=== PATIENT | female | born 1965 | race Caucasian/White ===

== ENCOUNTER 2016-05-27 12:47 | Outpatient (CLI) | payer BC | END 2016-05-27 12:48 | disposition home or self-care (01) | DX: Z12.31 Encounter for screening mammogram for malignant neoplasm of breast (principal) ==

== ENCOUNTER 2016-06-16 07:12 | Day surgery (SDC) | payer BC ==
[2016-06-16] MEDS ORDERED: LACTATED RINGERS 1,000 ML IV ONE ×2 (07:26→08:53)
[2016-06-16] MEDS ORDERED: MIDAZOLAM 2 MG/2 ML VIAL IVP ONE (08:07)
[2016-06-16] MEDS ORDERED: fentaNYL 250 MCG/5 ML VIAL IVP ONE (08:07)
== END 2016-06-16 07:13 | disposition home or self-care (01) ==
PROC: 0DBL8ZX Excision of Transverse Colon, Via Natural or Artificial Opening Endoscopic, Diagnostic (ICD-10-PCS; principal; 2016-06-16 08:15)
DX: Z12.11 Encounter for screening for malignant neoplasm of colon (principal); D12.3 Benign neoplasm of transverse colon; Z83.3 Family history of diabetes mellitus; Z82.49 Family history of ischemic heart disease and other diseases of the circulatory system; Z83.49 Family history of other endocrine, nutritional and metabolic diseases
CPT/HCPCS: 45380; 81025; J3010; J7120

== ENCOUNTER 2018-11-05 13:46 | Outpatient (CLI) | payer BC ==
--- NOTE | 2018-11-05 15:20 | XRAY Report ---
Reason: WRIST PAIN,RIGHT Procedure Date: 11/05/2018 Accession Number: [id number] / [id number] Procedure: XR - Wrist 4 View RT CPT Code: FULL RESULT: EXAM: RIGHT WRIST RADIOGRAPHY EXAM DATE: 11/05/2018 01:53 PM. CLINICAL HISTORY: Wrist pain, right. COMPARISON: XR HAND 2 VIEW 05/07/2009 11:15 AM. TECHNIQUE: 4 views. FINDINGS: Overlying cast material obscures fine bone detail. Bones: Within the above limitations, there is possibly a nondisplaced distal radial fracture laterally with suggestion of ongoing periosteal reaction versus artifact from the overlying cast. The navicular bone is mildly irregular with no definite displaced fracture visible. No displaced fracture is detected. Joints: Normal. No subluxations. Soft Tissues: Normal. No soft tissue swelling. IMPRESSION: Questionable injuries to the navicular bone and distal radius as described above, evaluation limited by overlying cast material. Good alignment. RADIA
== END 2018-11-05 13:47 | disposition home or self-care (01) ==
LOC: DI 13:46
PROVIDERS: ATTEND Family Medicine
DX: M25.531 Pain in right wrist (principal)

== ENCOUNTER 2019-07-08 11:15 | Outpatient (CLI) | payer BC ==
--- NOTE | 2019-07-10 10:04 | Mammography Report ---
Reason: ANNUAL MAMMOGRAM Procedure Date: 07/08/2019 Accession Number: [id number] / [id number] Procedure: CODY - Screening Mammo w/See CPT Code: Final Report FULL RESULT: EXAM: Screening Mammo w/See DATE: 07/08/2019 11:41 AM CLINICAL HISTORY: Screening encounter. TECHNIQUE: (B) - Bilateral CC, laterally exaggerated CC, MLO views were obtained. COMPARISON: 05/27/2016 through 06/08/2010. PARENCHYMAL PATTERN: (D) - The breast(s) demonstrate(s) heterogeneously dense fibroglandular parenchyma. FINDINGS: There are no suspicious masses, calcifications, or areas of distortion. IMPRESSION: Negative examination. BI-RADS category 1. RECOMMENDATION: (ANNUAL) - Recommend routine annual screening mammography. BI-RADS CATEGORY: (1) - Negative. STANDARD QUALIFYING STATEMENTS: 1. This examination was not reviewed with the aid of Computer-Aided Detection (CAD). 2. A negative or benign imaging report should not preclude biopsy if clinically suspicious findings are present. 3. Dense breasts may obscure an underlying neoplasm. 4. This examination was reviewed with the aid of 3D breast imaging (tomosynthesis).
== END 2019-07-08 11:16 | disposition home or self-care (01) ==
LOC: DI 11:15
DX: Z12.31 Encounter for screening mammogram for malignant neoplasm of breast (principal)
CPT/HCPCS: 77063; 77067

== ENCOUNTER 2020-03-01 14:31 | Outpatient (CLI) | payer BC ==
--- NOTE | 2020-03-02 16:28 | Ultrasound Report ---
PROCEDURE: Pelvic w/Transvaginal INDICATIONS: POSTMENOPAUSAL BLEEDING TECHNIQUE: Real-time scanning was performed of the pelvic organs, with image documentation. Additional endovagi nal scanning was necessary due to incomplete visualization of the adnexal and endometrial structures by transabdominal scanning. COMPARISON: Abdominal ultrasound 04/07/2014. FINDINGS: Transabdominal scanning: Limited scanning through the kidneys demonstrates no hydronephrosis. There is an echogenic nonshadowing focus within the inferior pole of the right kidney which is nonspecific but may represent a nonobstructing nonshadowing stone. Within the inferior pole of the left kidney, t here is a hyperechoic cortical lesion measuring up to 0.8 x 0.7 x 0.9 cm which may represent an angio myolipoma. No pathologic free abdominal or pelvic fluid. Endovaginal scanning: Uterus: Uterus measures 9.1 x 4.4 x 6.0 cm. The endometrium measures 0.4 cm in combined thickness. N o definite vascularity demonstrated within the endometrium on color Doppler interrogation. Small nabo thian cysts are noted. Ovaries: The right ovary measures 2.2 x 1.1 x 2.0 cm. Left ovary was not visualized, with evaluation limited by bowel gas. No adnexal masses. IMPRESSION: 1. No discrete uterine mass or definite abnormal endometrial thickening. Recommend clinical follow-up . 2. Hyperechoic cortical lesion in the left kidney is nonspecific and may represent an angiomyolipoma. However, other renal masses cannot be excluded. Consider follow-up renal mass protocol MRI or CT. 3. Echogenic nonshadowing focus within the right kidney is nonspecific. The differential includes a n onobstructing stone but correlation may also be obtained with CT if indicated. Reviewed by: Sonny Lucero MD on 03/02/2020 4:26 PM PST Approved by: Sonny Lucero MD on 03/02/2020 4:26 PM PST Station ID: [id number]
== END 2020-03-01 14:32 | disposition home or self-care (01) ==
LOC: DI 14:31
PROVIDERS: ATTEND Family Medicine
DX: R93.422 Abnormal radiologic findings on diagnostic imaging of left kidney (principal); R93.421 Abnormal radiologic findings on diagnostic imaging of right kidney
CPT/HCPCS: 76830; 76856

== ENCOUNTER 2020-03-05 14:40 | Outpatient (CLI) | payer BC | END 2020-03-05 14:41 | disposition home or self-care (01) | LOC: LAB 14:40 | PROVIDERS: ATTEND Obstetrics & Gynecology | DX: N95.0 Postmenopausal bleeding (principal) | CPT/HCPCS: 36415; 83001 ==